=== PATIENT | male | born 1990 | race Caucasian/White ===

== ENCOUNTER 2018-10-12 13:57 | Emergency (ER) | payer OTHER ==
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
[2018-10-12] MEDS ORDERED: LET GEL TOPICAL 1 EA SYR TP ONE (15:06)
[2018-10-12] MEDS ORDERED: SKIN ADHESIVE (DERMABOND) 1 EACH TP ONE (16:01)
[2018-10-12 16:03] VITALS: BP 121/86
== END 2018-10-12 16:32 | disposition home or self-care (01) ==
PROC: 0CQ0XZZ Repair Upper Lip, External Approach (ICD-10-PCS; principal; 2018-10-12)
DX: S06.0X0A Concussion without loss of consciousness, initial encounter (principal); S16.1XXA Strain of muscle, fascia and tendon at neck level, initial encounter; S01.511A Laceration without foreign body of lip, initial encounter; V18.0XXA Pedal cycle driver injured in noncollision transport accident in nontraffic accident, initial encounter; Y92.830 Public park as the place of occurrence of the external cause